=== PATIENT | male | born 1990 | race Caucasian/White ===

== ENCOUNTER 2017-01-12 17:28 | Emergency (ER) | payer OTHER | END 2017-01-12 18:29 | disposition home or self-care (01) | LOC: ER 17:28 | DX: S51.012A Laceration without foreign body of left elbow, initial encounter (principal); F17.210 Nicotine dependence, cigarettes, uncomplicated; W22.8XXA Striking against or struck by other objects, initial encounter; Y92.89 Other specified places as the place of occurrence of the external cause ==